=== PATIENT | male | born 1990 | race Caucasian/White ===

== ENCOUNTER 2018-06-03 09:34 | Emergency (ER) | payer SELFPAY ==
[2018-06-03 09:43] VITALS: BP 131/77
--- NOTE | 2018-06-03 10:02 | ER Document Report ---
ED Medical Screen (RME) - General Chief Complaint: Hand Pain Stated Complaint: POSSIBLE SPIDER BITE Time Seen by Provider: 06/03/18 09:48 Mode of Arrival: Ambulatory Information source: Patient Notes: Patient presents to the emergency department with multiple complaints right wrist pain and swelling right hand locking up on him possible infected spider bite complains of passing out 2 nights ago ear pain. Reports skin sensitivity chills. Patient has history of [place] spotted fever. Reports fever a few days ago. Patient also has history of IV drug use. Patient reports he is attempted IV access in his wrist and on his left forearm. Dr. Hall consulted and assessed patient. Advises for workup. I have greeted and performed a rapid initial assessment of this patient. A comprehensive ED assessment and evaluation of the patient, analysis of test results and completion of the medical decision making process will be conducted by additional ED providers. TRAVEL OUTSIDE OF THE [place] IN LAST 30 DAYS: No - Related Data Allergies/Adverse Reactions: No Known Allergies Allergy (Verified 06/03/18 09:37) Past Medical History - Social History Chew tobacco use (# tins/day): No Frequency of alcohol use: Occasional Drug Abuse: None Pulmonary Medical History: Reports: Hx Bronchitis, Hx Pneumonia Renal/ Medical History: Denies: Hx Peritoneal Dialysis Psychiatric Medical History: Reports: Hx Attention Deficit Hyperactivity Disorder - Immunizations Hx Diphtheria, Pertussis, Tetanus Vaccination: Yes Physical Exam - Vital signs Vitals: Temp Pulse Resp BP Pulse Ox 98.3 F 84 14 131/77 H 99 06/03/18 09:39 06/03/18 09:39 06/03/18 09:39 06/03/18 09:39 06/03/18 09:39 Course - Vital Signs Vital signs: Temp Pulse Resp BP Pulse Ox 98.3 F 84 14 131/77 H 99 06/03/18 09:39 06/03/18 09:39 06/03/18 09:39 06/03/18 09:39 06/03/18 09:39
[2018-06-03] MEDS ORDERED: VANCOMYCIN HCL INJ 1000 MG VIAL IV ONE (10:04)
[2018-06-03] MEDS ORDERED: DIPH/PERTUSS(ACELL)/TETANUS VAC/PF 0.5 ML SYR (>=10YO) IM ONE (10:20)
--- NOTE | 2018-06-03 10:22 | ER Document Report ---
ED General - General Chief Complaint: Hand Pain Stated Complaint: POSSIBLE SPIDER BITE Time Seen by Provider: 06/03/18 09:48 Mode of Arrival: Ambulatory Notes: Joshua Andres is a 27-year-old male history of substance abuse. IV drug abuse. Multiple track diamond on his arms complaining of redness and swelling of the left upper extremity and right upper extremity. Has attempted to inject himself in the wrist area of both upper extremities. Denies any major other symptoms at this time other than the fact that his left ear is a little bit numb from passing out sleeping on it. TRAVEL OUTSIDE OF THE [place] IN LAST 30 DAYS: No - HPI Onset: Yesterday Onset/Duration: Gradual, Worse Severity: Mild - Related Data Allergies/Adverse Reactions: No Known Allergies Allergy (Verified 06/03/18 09:37) Past Medical History - General Information source: Patient - Social History Smoking Status: Current Every Day Smoker Chew tobacco use (# tins/day): No Frequency of alcohol use: Occasional Drug Abuse: Heroin, Marijuana, Methamphetamine Lives with: Alone Family History: Reviewed & Not Pertinent Patient has suicidal ideation: No Patient has homicidal ideation: No Pulmonary Medical History: Reports: Hx Bronchitis, Hx Pneumonia Renal/ Medical History: Denies: Hx Peritoneal Dialysis Psychiatric Medical History: Reports: Hx Attention Deficit Hyperactivity Disorder - Immunizations Hx Diphtheria, Pertussis, Tetanus Vaccination: Yes Review of Systems - Review of Systems Constitutional: denies: Fever, Malaise, Weakness EENT: No symptoms reported, See HPI, Other - Left ear numbness. denies: Ear discharge, Throat swelling Cardiovascular: denies: Chest pain, Palpitations, Heart racing Respiratory: No symptoms reported Gastrointestinal: denies: Abdominal pain, Diarrhea, Nausea, Vomiting Genitourinary: No symptoms reported Male Genitourinary: No symptoms reported Musculoskeletal: No symptoms reported Skin: See HPI, Lesions, Rash Hematologic/Lymphatic: No symptoms reported Neurological/Psychological: No symptoms reported Physical Exam - Vital signs Vitals: Temp Pulse Resp BP Pulse Ox 98.3 F 84 14 131/77 H 99 06/03/18 09:39 06/03/18 09:39 06/03/18 09:39 06/03/18 09:39 06/03/18 09:39 Interpretation: Normal - General General appearance: Appears well, Alert - HEENT Head: Normocephalic, Atraumatic Eyes: Normal Pupils: PERRL - Respiratory Respiratory status: No respiratory distress Chest status: Nontender Breath sounds: Normal Chest palpation: Normal - Cardiovascular Rhythm: Regular Heart sounds: Normal auscultation Murmur: No - Abdominal Inspection: Normal Distension: No distension Bowel sounds: Normal Tenderness: Nontender Organomegaly: No organomegaly - Back Back: Normal, Nontender - Extremities General upper extremity: Normal inspection, Tender, Normal color, Normal ROM, Normal temperature, Other - Tenderness to palpation of the right upper extremity around the distal radius area. There is some tenderness to palpation midforearm on the left with some mild redness of the left upper extremity General lower extremity: Normal inspection, Nontender, Normal color, Normal ROM , Normal temperature, Normal weight bearing. No: Peyman's sign - Neurological Neuro grossly intact: Yes Cognition: Normal Orientation: AAOx4 [place] Coma Scale Eye Opening: Spontaneous Huang Coma Scale Verbal: Oriented Huang Coma Scale Motor: Obeys Commands [place] Coma Scale Total: 15 Speech: Normal Motor strength normal: LUE, RUE, LLE, RLE Sensory: Normal - Psychological Associated symptoms: Normal affect, Normal mood - Skin Skin Temperature: Warm Skin Moisture: Dry Skin Color: Other - There are multiple track diamond present in the right upper and left upper extremities. Some surrounding erythema around the veins of the right upper and and left upper extremity Course - Re-evaluation Re-evalutation: 06/03/18 10:22 Based on patient's tenderness and redness on his bilateral upper extremities with history of IV drug abuse will get blood work empirically start him on a dose of vancomycin. Will likely discharge him with some oral antibiotics. 06/03/18 12:38 Laboratory 06/03/18 06/03/18 06/03/18 10:18 10:18 10:18 WBC 7.5 RBC 4.33 L Hgb 12.7 L Hct 36.2 L MCV 84 MCH 29.3 MCHC 35.1 RDW 12.8 Plt Count 223 Seg Neutrophils % 60.5 Lymphocytes % 26.1 Monocytes % 10.9 Eosinophils % 1.9 Basophils % 0.6 Absolute Neutrophils 4.5 Absolute Lymphocytes 2.0 Absolute Monocytes 0.8 Absolute Eosinophils 0.1 Absolute Basophils 0.0 Sodium 141.5 Potassium 4.0 Chloride 102 Carbon Dioxide 28 Anion Gap 12 BUN 9 Creatinine 0.66 Est GFR ( Amer) > 60 Est GFR (Non-Af Amer) > 60 Glucose 96 Calcium 9.3 Total Bilirubin 0.7 Direct Bilirubin 0.3 Neonat Total Bilirubin Not Reportable Neonat Direct Bilirubin Not Reportable Neonat Indirect Bili Not Reportable AST 21 ALT 21 Alkaline Phosphatase 54 C-Reactive Protein 81.4 H Total Protein 7.1 Albumin 4.0 HIV 1&2 Antibody NEGATIVE Patient has received IV antibiotics. Resting comfortably. Does not have an extremely elevated WBC count. At this time we will discharge him on oral antibiotics after his initial IV vancomycin. Blood cultures have been obtained. Will discharge in stable condition at this time - Vital Signs Vital signs: Temp Pulse Resp BP Pulse Ox 98.3 F 84 14 131/77 H 99 06/03/18 09:39 06/03/18 09:39 06/03/18 09:39 06/03/18 09:39 06/03/18 09:39 - Laboratory Result Diagrams: 06/03/18 10:18 06/03/18 10:18 Laboratory results interpreted by me: 06/03/18 06/03/18 10:18 10:18 RBC 4.33 L Hgb 12.7 L Hct 36.2 L C-Reactive Protein 81.4 H Discharge - Discharge Clinical Impression: Right arm cellulitis Condition: Good Disposition: HOME, SELF-CARE Instructions: Cellulitis (OM) Additional Instructions: Please return in 24 hours for recheck of the skin. Prescriptions: Amoxicillin 500 mg PO TID 10 Days #30 capsule Sulfamethoxazole/Trimethoprim [Bactrim Ds Tablet] 1 each PO BID 10 Days #20 tablet Forms: Return to Work
[2018-06-03 11:16] LABS: ABSOLUTE EOSINOPHILS # (AUTO) 0.1 10^3/uL (0.0-0.6); ABSOLUTE MONOCYTES (AUTO) 0.8 10^3/uL (0.1-1.4); ABSOLUTE NEUT (AUTO) 4.5 10^3/uL (1.7-8.2); BASOPHILS % (AUTO) 0.6 % (0-2); EOSINOPHILS % (AUTO) 1.9 % (0-6); HEMATOCRIT 36.2 % (37.9-51.0); HEMOGLOBIN 12.7 g/dL (13.5-17.0); LYMPHOCYTES % (AUTO) 26.1 % (13-45); MEAN CORPUSCULAR HEMOGLOBIN 29.3 pg (27.0-33.4); MEAN CORPUSCULAR HGB CONC 35.1 g/dL (32.0-36.0); MEAN CORPUSCULAR VOLUME 84 fl (80-97); MONOCYTES % (AUTO) 10.9 % (3-13); PLATELET COUNT 223 10^3/uL (150-450); RED BLOOD COUNT 4.33 10^6/uL (4.35-5.55); RED CELL DISTRIBUTION WIDTH 12.8 % (11.5-14.0); SEGMENTED NEUTROPHILS % (AUTO) 60.5 % (42-78); TOTAL CELLS COUNTED % (AUTO) 100 %; WHITE BLOOD COUNT 7.5 10^3/uL (4.0-10.5)
[2018-06-03 11:31] LABS: ALANINE AMINOTRANSFERASE 21 U/L (21-72); ALKALINE PHOSPHATASE 54 U/L (38-126); ANION GAP 12 (5-19); ASPARTATE AMINO TRANSFERASE 21 U/L (17-59); BILIRUBIN,DIRECT 0.3 mg/dL (0.0-0.4); BILIRUBIN,TOTAL 0.7 mg/dL (0.2-1.3); BLOOD UREA NITROGEN 9 mg/dL (7-20); C-REACTIVE PROTEIN 81.4 mg/L (<10.0); CALCIUM 9.3 mg/dL (8.4-10.2); CARBON DIOXIDE 28 mmol/L (22-30); CHLORIDE 102 mmol/L (98-107); GLUCOSE 96 mg/dL (75-110); SODIUM 141.5 mmol/L (137-145); TOTAL PROTEIN 7.1 g/dL (6.3-8.2)
[2018-06-04 05:40] LABS: HEPATITIS A AB IGM Negative (Negative); HEPATITIS B CORE AB IGM Negative (Negative); HEPATITS B SURFACE ANTIGEN Negative (Negative)
[2018-06-05 06:14] LABS: HEPATITIS C VIRUS ANTIBODY <0.1 s/co ratio (0.0-0.9)
== END 2018-06-03 13:27 | disposition home or self-care (01) ==
LOC: ER 09:34
DX: L03.113 Cellulitis of right upper limb (principal); M79.642 Pain in left hand; F17.200 Nicotine dependence, unspecified, uncomplicated; Z23 Encounter for immunization
CPT/HCPCS: 99283; 90471; 36415; 87040; 85025; 86140; 80053; 86701; 80074; 90715; J3370

== ENCOUNTER 2020-05-01 12:59 | Emergency (ER) | payer SELFPAY ==
[2020-05-01 13:09] VITALS: BP 149/85
[2020-05-01] MEDS ORDERED: DEXAMETHASONE SOD PHOS INJ 10 MG/1 ML VIAL IM ONE (13:37)
--- NOTE | 2020-05-01 13:42 | ER Document Report ---
HPI - HPI Time Seen by Provider: 05/01/20 13:34 Pain Level: 2 Notes: CHIEF COMPLAINT:poison oscar HPI: 29-year-old male presenting to the emergency department complaining of 3 days of progressively worsening poison oscar rash. States it started on the wrists now has it over the entire torso and now the face around the left eye. Has been using calamine lotion. ROS: See HPI - all other systems were reviewed and are otherwise negative Constitutional: no fever Eyes: no drainage ENT: no runny nose, no sore throat Integumentary: + rash Allergy: no hives Musculoskeletal: + extremity pain or swelling Neurological: no numbness/tingling MEDICATIONS: I agree with the patient medications as charted by the RN. ALLERGIES: I agree with the allergies as charted by the RN. PAST MEDICAL HISTORY/PAST SURGICAL HISTORY: Reviewed and agree as charted by RN. SOCIAL HISTORY: Reviewed and agree as charted by RN. FAMILY HISTORY: No significant familial comorbid conditions directly related to patient complaint EXAM: Reviewed vital signs as charted by RN. CONSTITUTIONAL: Alert and oriented and responds appropriately to questions. Well-appearing; well-nourished HEAD: Normocephalic; atraumatic EYES: PERRL; Conjunctivae clear, sclerae non-icteric ENT: normal nose; no rhinorrhea; moist mucous membranes; pharynx without lesions noted NECK: Supple without meningismus CARD: symmetric distal pulses RESP: Normal chest excursion without splinting or tachypnea ABD/GI: non-distended BACK: The back appears normal EXT: Normal ROM in all joints; no cyanosis, no effusions, no edema SKIN: Normal color for age and race; warm; dry; good turgor; patient with raised erythematous lesions with crusting noted on the bilateral upper and lower extremities as well as torso and around the left eye with slight soft tissue swelling. Also on the left neck NEURO: Moves all extremities equally; Motor and sensory function intact PSYCH: The patient's mood and manner are appropriate. Grooming and personal hygiene are appropriate. MDM: 29-year-old male with Rhus dermatitis. 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 IN LAST 30 DAYS: No Course - Vital Signs Vital signs: Temp Pulse Resp BP Pulse Ox 97.7 F 97 16 149/85 H 98 05/01/20 13:04 05/01/20 13:04 05/01/20 13:04 05/01/20 13:04 05/01/20 13:04 Discharge - Discharge Clinical Impression: Rhus dermatitis Condition: Stable Disposition: HOME, SELF-CARE Instructions: Catrachito Delgadillo ([facility]) Additional Instructions: 1. 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 use the Prednisone as prescribed 3. take the Atarax for itching as prescribed Prescriptions: Prednisone [Deltasone 20 mg Tablet] 2 tab PO DAILY 7 Days #14 tablet Hydroxyzine Pamoate [Vistaril 25 mg Capsule] 25 mg PO Q6H PRN #30 capsule PRN Reason:
== END 2020-05-01 13:46 | disposition home or self-care (01) ==
LOC: ER 12:59
DX: L23.7 Allergic contact dermatitis due to plants, except food (principal); F17.200 Nicotine dependence, unspecified, uncomplicated
CPT/HCPCS: 99282; 96372; J1100

== ENCOUNTER 2020-05-10 08:21 | Emergency (ER) | payer SELFPAY ==
[2020-05-10 08:27] VITALS: BP 141/92
[2020-05-10] MEDS ORDERED: LIDOCAINE 1%/EPINEPHRINE INJ 20 ML VIAL INJ ONE (08:58)
--- NOTE | 2020-05-10 09:02 | ER Document Report ---
ED General - General Chief Complaint: Skin Problem Stated Complaint: ABSCESS/RIGHT LEG Time Seen by Provider: 05/10/20 08:58 Notes: CHIEF COMPLAINT: Tender swollen area on right lower leg for 3 days HPI: 29-year-old male presenting to the emergency department complaining of a tender area on the medial right lower leg over the last 3 days. Patient was recently on steroids for bad poison oak and has been scratching at the different areas. States he did have an abscess on the right knee 2 weeks ago that he drained on his own. He states his tetanus is up-to-date. Denies fever. ROS: See HPI - all other systems were reviewed and are otherwise negative Constitutional: no fever Integumentary: + rash Allergy: no hives Musculoskeletal: + extremity pain or swelling Neurological: no numbness/tingling, no weakness MEDICATIONS: I agree with the patient medications as charted by the RN. ALLERGIES: I agree with the allergies as charted by the RN. PAST MEDICAL HISTORY/PAST SURGICAL HISTORY: Reviewed and agree as charted by RN. SOCIAL HISTORY: Reviewed and agree as charted by RN. FAMILY HISTORY: No significant familial comorbid conditions directly related to patient complaint EXAM: Reviewed vital signs as charted by RN. CONSTITUTIONAL: Alert and oriented and responds appropriately to questions. Well-appearing; well-nourished HEAD: Normocephalic; atraumatic EYES: Conjunctivae clear, sclerae non-icteric ENT: normal nose; no rhinorrhea; moist mucous membranes NECK: Supple without meningismus CARD: symmetric distal pulses RESP: Normal chest excursion without splinting or tachypnea ABD/GI: non-distended BACK: The back appears normal non-tender to palpation; no cyanosis, no effusions, no edema SKIN: Normal color for age and race; warm; dry; good turgor; excoriated rash generally over the lower extremities. There is a tender indurated region on the medial aspect of the right lower extremity proximal to the medial malleolus measuring approximately 2 cm in diameter that is mildly tender mildly fluctuant NEURO: Moves all extremities equally; Motor and sensory function intact PSYCH: The patient's mood and manner are appropriate. Grooming and personal hygiene are appropriate. MDM: 29-year-old male with a small abscess on the medial right lower leg. This area will require incision and drainage. TRAVEL OUTSIDE OF THE [place] IN LAST 30 DAYS: No - Related Data Allergies/Adverse Reactions: prednisone Adverse Reaction (Verified 05/10/20 08:54) itching, rash to palms Past Medical History - Social History Smoking Status: Current Every Day Smoker Chew tobacco use (# tins/day): No Frequency of alcohol use: None Drug Abuse: None Family History: Reviewed & Not Pertinent Pulmonary Medical History: Reports: Hx Bronchitis, Hx Pneumonia Renal/ Medical History: Denies: Hx Peritoneal Dialysis Psychiatric Medical History: Reports: Hx Attention Deficit Hyperactivity Disorder - Immunizations Hx Diphtheria, Pertussis, Tetanus Vaccination: Yes Physical Exam - Vital signs Vitals: Temp Pulse Resp BP Pulse Ox 98.4 F 107 H 20 141/92 H 98 05/10/20 08:26 05/10/20 08:26 05/10/20 08:26 05/10/20 08:26 05/10/20 08:26 Course - Vital Signs Vital signs: Temp Pulse Resp BP Pulse Ox 98.4 F 107 H 20 141/92 H 98 05/10/20 08:26 05/10/20 08:26 05/10/20 08:26 05/10/20 08:26 05/10/20 08:26 Procedures - Incision and Drainage Right Lower Leg Time completed: 10:04 Type: Simple, Single Anesthetic type: 1% Lidocaine w/epi mL's of anesthetic: 1 Blade size: 11 I&D procedure: Chlorprep applied, Iodoform packing placed, Sterile dressing applied Incision Method: Incision made by scalpel Amount/type of drainage: 1 ml purulent Discharge - Discharge Clinical Impression: Abscess of leg, right Condition: Stable Disposition: HOME, SELF-CARE Additional Instructions: 1. packing out in 2-3 days 2. follow up with your primary care provider for further evaluation in 2-3 days 3. medicines as prescribed, take Tylenol or Voltaren for pain 4. return sooner for any worsening condition, increasing redness or onset of fever 5. apply warm compresses to the wound area 2-3 times daily Prescriptions: Sulfamethoxazole/Trimethoprim [Bactrim Ds Tablet] 2 tab PO BID #28 tablet Diclofenac Sodium [Voltaren 50 Mg Tablet.Dr] 50 mg PO BID #20 tablet. Referrals: EVANS STARK MD [[facility]UNITY [facility]ED STAFF] - Follow up as needed
== END 2020-05-10 10:34 | disposition home or self-care (01) ==
LOC: ER 08:21
PROC: 0H9KXZZ Drainage of Right Lower Leg Skin, External Approach (ICD-10-PCS; principal; 2020-05-10)
DX: L02.415 Cutaneous abscess of right lower limb (principal); R21 Rash and other nonspecific skin eruption; F17.200 Nicotine dependence, unspecified, uncomplicated; Z88.8 Allergy status to other drugs, medicaments and biological substances
CPT/HCPCS: 99283; 10060; J3490

== ENCOUNTER 2020-05-13 21:41 | Inpatient (IN) | payer SELFPAY ==
--- NOTE | 2020-05-13 23:36 | ER Document Report ---
ED Medical Screen (RME) - General Stated Complaint: INJURY TO RIGHT LEG/POSSIBLE INFECTION/NAUSEA Time Seen by Provider: 05/13/20 23:33 Mode of Arrival: Ambulatory Information source: Patient Notes: 29-year-old male patient presents emergency department concern for abscess to his right lower extremity. Patient reports this is been present for the last 4 to 5 days. He states he was seen here and had this drained. He reports he is now having worsening symptoms, he states the pain is so severe he is barely able to walk on it. He states he is having some confusion and chills. He denies any medical history and denies any IV drug use. Large area of erythema noted to right lower extremity. There is induration and a few small areas of fluctuance, there is an open area in which a recent I&D was done. I have greeted and performed a rapid initial assessment of this patient. A comprehensive ED assessment and evaluation of the patient, analysis of test results and completion of the medical decision making process will be conducted by additional ED providers. I have specifically instructed the patient or family members with the patient to immediately return to any nursing staff should anything change in the patient's condition or with their chief complaint. TRAVEL OUTSIDE OF THE [place] IN LAST 30 DAYS: No - Related Data Allergies/Adverse Reactions: prednisone Adverse Reaction (Verified 05/10/20 08:54) itching, rash to palms Past Medical History Pulmonary Medical History: Reports: Hx Bronchitis, Hx Pneumonia Renal/ Medical History: Denies: Hx Peritoneal Dialysis Psychiatric Medical History: Reports: Hx Attention Deficit Hyperactivity Disorder - Immunizations Hx Diphtheria, Pertussis, Tetanus Vaccination: Yes Physical Exam - Vital signs Vitals: Temp Pulse Resp BP Pulse Ox 98.7 F 98 16 128/79 H 100 05/13/20 21:54 05/13/20 21:54 05/13/20 21:54 05/13/20 21:54 05/13/20 21:54 Course - Vital Signs Vital signs: Temp Pulse Resp BP Pulse Ox 98.7 F 98 16 128/79 H 100 05/13/20 21:54 05/13/20 21:54 05/13/20 21:54 05/13/20 21:54 05/13/20 21:54
[2020-05-14 00:13] LABS: ABSOLUTE BASOPHILS # (AUTO) 0.1 10^3/uL (0.0-0.2); ABSOLUTE EOSINOPHILS # (AUTO) 0.5 10^3/uL (0.0-0.6); ABSOLUTE MONOCYTES (AUTO) 0.6 10^3/uL (0.1-1.4); BASOPHILS % (AUTO) 0.6 % (0-2); EOSINOPHILS % (AUTO) 5.7 % (0-6); HEMATOCRIT 39.6 % (37.9-51.0); HEMOGLOBIN 14.3 g/dL (13.5-17.0); LYMPHOCYTES % (AUTO) 21.6 % (13-45); MEAN CORPUSCULAR VOLUME 83 fl (80-97); MONOCYTES % (AUTO) 6.8 % (3-13); PLATELET COUNT 274 10^3/uL (150-450); RED BLOOD COUNT 4.76 10^6/uL (4.35-5.55); RED CELL DISTRIBUTION WIDTH 13.8 % (11.5-14.0); SEGMENTED NEUTROPHILS % (AUTO) 65.3 % (42-78); TOTAL CELLS COUNTED % (AUTO) 100 %; WHITE BLOOD COUNT 9.1 10^3/uL (4.0-10.5)
[2020-05-14 00:29] LABS: ALBUMIN 4.5 g/dL (3.5-5.0); ALKALINE PHOSPHATASE 44 U/L (38-126); ANION GAP 9 (5-19); ASPARTATE AMINO TRANSFERASE 133 U/L (17-59); BILIRUBIN,DIRECT 0.1 mg/dL (0.0-0.4); BILIRUBIN,TOTAL 0.8 mg/dL (0.2-1.3); BLOOD UREA NITROGEN 13 mg/dL (7-20); C-REACTIVE PROTEIN 37.7 mg/L (<10.0); CALCIUM 9.7 mg/dL (8.4-10.2); CARBON DIOXIDE 27 mmol/L (22-30); CHLORIDE 103 mmol/L (98-107); GLUCOSE 86 mg/dL (75-110); POTASSIUM 3.7 mmol/L (3.6-5.0); TOTAL PROTEIN 7.5 g/dL (6.3-8.2)
--- NOTE | 2020-05-14 00:38 | RADIOLOGY REPORT (SQ) ---
EXAM: XR Right Tibia and Fibula, 2 Views EXAM DATE/TIME: 05/13/2020 12:10 AM CLINICAL HISTORY: The patient is 29 years old and is Male; eval for osteo TECHNIQUE: Frontal and lateral views of the right tibia and fibula. COMPARISON: No relevant prior studies available. FINDINGS: BONES/JOINTS: No acute fracture or dislocation. No osseous erosion or periosteal reaction identified. SOFT TISSUES: There is mild soft tissue swelling about the lower leg. No radiopaque foreign body identified. Possible tiny focus of air within the medial soft tissues about the mid aspect of the lower leg. IMPRESSION: Soft tissue swelling with questionable tiny focus of soft tissue air medially. No acute osseous findings appreciated.
[2020-05-14 00:46] LABS: ERYTHROCYTE SEDIMENTATION RATE 18 mm/hr (0-15)
[2020-05-14] MEDS ORDERED: LIDOCAINE 1%/EPINEPHRINE INJ 20 ML VIAL INJ ONE (01:09)
--- NOTE | 2020-05-14 01:12 | ER Document Report ---
ED Skin Rash/Insect Bite/Abscs - General Chief Complaint: Abscess Stated Complaint: INJURY TO RIGHT LEG/POSSIBLE INFECTION/NAUSEA Time Seen by Provider: 05/13/20 23:33 Mode of Arrival: Ambulatory Notes: Patient is a 29-year-old male with no past medical history who presents the emergency department with a chief complaint of a possible abscess to his right medial lower leg. Patient was seen here in the emergency department 3 days ago and had an abscess drained. Patient states that the redness got progressively worse and spread. Patient was exposed to poison oscar earlier in the month. Denies any fever. Admits to body aches and being mildly confused. Patient denies any drug use. Patient is up-to-date on his tetanus vaccine. Patient later revealed that he does have a history of heroin use. States that he has not been on heroin because his twin brother from a heroin overdose. TRAVEL OUTSIDE OF THE [place] IN LAST 30 DAYS: No - Related Data Allergies/Adverse Reactions: prednisone Adverse Reaction (Verified 05/10/20 08:54) itching, rash to palms Past Medical History - General Information source: Patient - Social History Smoking Status: Current Every Day Smoker Chew tobacco use (# tins/day): No Frequency of alcohol use: Rare Drug Abuse: None Family History: Reviewed & Not Pertinent Pulmonary Medical History: Reports: Hx Bronchitis, Hx Pneumonia Renal/ Medical History: Denies: Hx Peritoneal Dialysis Psychiatric Medical History: Reports: Hx Attention Deficit Hyperactivity Disorder - Immunizations Hx Diphtheria, Pertussis, Tetanus Vaccination: Yes Review of Systems - Review of Systems Notes: REVIEW OF SYSTEMS: CONSTITUTIONAL : Denies recent illness. Denies recent unintentional weight loss. Denies fever, chills, or sweats. EENT: Denies eye, ear, throat, or mouth pain, discharge, or symptoms. Denies nasal or sinus congestion. CARDIOVASCULAR: Denies chest pain. RESPIRATORY: Denies shortness of breath, cough, congestion, difficulty breathing, or wheezing. GASTROINTESTINAL: Denies nausea, vomiting, and diarrhea. Denies abdominal pain. Denies constipation. GENITOURINARY: Denies difficulty urinating, burning, blood in urine, urgency or frequency. MUSCULOSKELETAL: Denies neck and back pain. Denies joint pain or swelling. SKIN: See HPI. HEMATOLOGIC : Denies easy bruising or bleeding. LYMPHATIC: Denies swollen, painful, enlarged glands. NEUROLOGICAL: Denies no numbness or tingling denies weakness. Denies headache. Denies altered mental status. Denies alteration in speech. PSYCHIATRIC: Denies stress, anxiety, alteration in sleep patterns, or depression. All other systems reviewed and negative. Physical Exam - Vital signs Vitals: Temp Pulse Resp BP Pulse Ox 98.7 F 98 16 128/79 H 100 05/13/20 21:54 05/13/20 21:54 05/13/20 21:54 05/13/20 21:54 05/13/20 21:54 - Notes Notes: PHYSICAL EXAMINATION: GENERAL: Appears well, healthy, well-nourished, no acute distress. HEAD: Normocephalic, atraumatic. EYES: PERRL, conjunctiva normal, all extraocular movements intact, sclera nonicteric ENT: Moist mucous membranes. NECK: Supple, no noticeable swelling, redness, rash. Normal range of motion. LUNGS: Equal breath sounds bilaterally and clear to auscultation. No wheezes rales or rhonchi. CARDIOVASCULAR: S1-S2, regular rate, regular rhythm. Radial pulses 2+, normal. ABDOMEN: Normoactive bowel sounds. Soft, nontender, no guarding, no rebound t enderness, and no masses palpated. EXTREMITIES: Normal strength and range of motion, no pitting or edema. No cyanosis. NEUROLOGICAL: Moves all extremities upon command. Strength 5/5 in all extrem ities. PSYCH: Normal mood, normal affect. SKIN: Warm, dry. Abscess noted to right lower extremity with surrounding cellulitis. Open abscess noted with purulent drainage. Normal skin turgor. Course - Re-evaluation Re-evalutation: 05/14/20 03:10 Differential diagnosis includes but normal limited to: abscess, dermoid cyst, sebaceous cyst, furnucle, or others. Based on patient's physical exam and history, this is an abscess. It was drained in the ER. There is surrounding cellulitis. Patient has risk factors for MRSA. Based on patient's physical exam and these factors, they will will be treated with clindamycin. Since the patient has failed outpatient treatment, will admit. Started the patient on clindamycin. Wound culture sent. 05/14/20 03:[address] Veloz, hospitalist. Patient will be admitted to the medical floor. - Vital Signs Vital signs: Temp Pulse Resp BP Pulse Ox 98 F 94 16 130/71 H 100 05/14/20 02:47 05/14/20 02:47 05/14/20 02:47 05/14/20 02:47 05/14/20 02:47 - Laboratory Result Diagrams: 05/13/20 23:55 05/13/20 23:55 Laboratory results interpreted by me: 05/13/20 05/13/20 23:55 23:55 ESR 18 H AST 133 H ALT 197 H C-Reactive Protein 37.7 H Discharge - Discharge Clinical Impression: Abscess of leg, right Cellulitis Qualifiers: Site of cellulitis: extremity Site of cellulitis of extremity: lower extremity Laterality: right Qualified Code(s): L03.115 - Cellulitis of right lower limb Condition: Stable Disposition: HOME, SELF-CARE Admitting Provider: Roselia (Hospitalist) Unit Admitted: Medical Floor
[2020-05-14] MEDS ORDERED: CLINDAMYCIN 300 MG/D5W RTU 300 MG/50 ML RTUPB IV ONE (01:25)
[2020-05-14 03:52] LABS: URINE BARBITURATES SCREEN NEGATIVE; URINE BENZODIAZEPINES SCREEN NEGATIVE; URINE COCAINE SCREEN NEGATIVE; URINE MARIJUANA (THC) SCREEN NEGATIVE; URINE METHADONE SCREEN NEGATIVE; URINE PHENCYCLIDINE SCREEN NEGATIVE
[2020-05-14] MEDS ORDERED: MAG HYDROX/AL HYDROX/SIMETH SUSP 30 ML UDCUP PO PRN (03:59)
[2020-05-14] MEDS ORDERED: ONDANSETRON HCL INJ/PF 4 MG/2 ML SDV IV PRN (03:59)
[2020-05-14] MEDS ORDERED: LEVALBUTEROL HCL NEB 0.63 MG/3 ML AMPUL NEB PRN (03:59)
[2020-05-14] MEDS ORDERED: MAGNESIUM HYDROXIDE SUSP 30 ML UDCUP PO PRN (03:59)
[2020-05-14] MEDS ORDERED: IBUPROFEN 800 MG TABLET PO PRN (04:03)
[2020-05-14] MEDS ORDERED: GUAIFENESIN SYRP 200 MG/10 ML UDC PO PRN (04:03)
[2020-05-14] MEDS ORDERED: ACETAMINOPHEN 325 MG TABLET PO PRN (04:03)
[2020-05-14] MEDS ORDERED: NICOTINE 21 MG/24 HR PATCH.TD24 TD PRN (04:03)
[2020-05-14] MEDS ORDERED: LORAZEPAM INJ 2 MG/1 ML VIAL IV PRN (04:03)
[2020-05-14] MEDS ORDERED: HYDRALAZINE HCL INJ/PF 20 MG/1 ML SDV IV PRN (04:03)
[2020-05-14] MEDS ORDERED: MORPHINE SULFATE 10 MG/ML INJ IV PRN ×3 (04:03)
[2020-05-14] MEDS ORDERED: CEFEPIME 2 GM/D5W RTU 2 GM/50 ML RTUPB IV SCH (04:15)
[2020-05-14] MEDS ORDERED: VANCOMYCIN HCL INJ 1000 MG VIAL IV SCH (04:15)
[2020-05-14] MEDS ORDERED: VANCOMYCIN HCL 1,000 MG in DEXTROSE 5%-WATER 250 ML IV SCH (06:00)
--- NOTE | 2020-05-14 06:58 | PDOC H&P ---
History of Present Illness Admission Date/PCP: 05/14/2020 03:37 No local PCP Patient complains of: Right leg pain History of Present Illness: JUAN MESA is a 29 year old male who represented to the emergency room with a 5-day history of right leg pain. He admits that he was seen in the emergency room on 05/10/2020, with a 2-day history of a painful red and swollen medial right lower leg, and was diagnosed with a abscess and cellulitis of his right lower extremity. He admits at that time the abscess was incised and drained and he was started on oral antibiotics utilizing Bactrim DS. He states he took his antibiotic therapy as directed, however his leg has been increasingly more jazmine nful and has become more swollen, red and warm to touch. He further admits accompanying body aches and associated intermittent confusion over the last 3 days. His leg pain is made significantly worse by weightbearing. He admits prior similar episodes. He denies identification of any additional aggravating or ameliorating factors for his right leg pain. In the emergency room he was noted to have a new small area of abscess involving the same area on the medial aspect of the right lower extremity which was incised and drained. Due to his lack of response to outpatient therapy he was subsequently admitted to the hospital for further evaluation and treatment. Past Medical History Cardiac Medical History: Denies: Coronary Artery Disease, DVT, Hypertension Pulmonary Medical History: Reports: Bronchitis, Pneumonia Denies: Asthma, Chronic Obstructive Pulmonary Disease (COPD) EENT Medical History: Denies: Cataracts, Ears - Hearing aids Neurological Medical History: Denies: Multiple Sclerosis, Seizures Endocrine Medical History: Denies: Diabetes Mellitus Type 1, Hyperthyroidism, Hypothyroidism, Obesity Renal/ Medical History: Denies: Chronic Kidney Disease, Nephrolithiasis Malignancy Medical History: Reports: None GI Medical History: Denies: Cirrhosis, Hepatitis, Peptic Ulcer Disease Musculoskeltal Medical History: Denies: Arthritis, Gout Skin Medical History: Denies: Eczema, Psoriasis Psychiatric Medical History: Reports: Attention Deficit Hyperactivity Disorder, Substance Abuse, Tobacco Dependency Denies: Alcohol Dependency Traumatic Medical History: Reports: None Hematology: Denies: Anemia, Bleeding Tendencies Infectious Medical History: Reports: None Past Surgical History Past Surgical History: Reports: None Social History Information Source: Patient Lives with: Parents Smoking Status: Current Every Day Smoker Electronic Cigarette use?: No Frequency of Alcohol Use: None Hx Recreational Drug Use: Yes - Denies current use: Quit after his twin brother of a heroin overdose. Drugs: Heroin Hx Prescription Drug Abuse: No - Advance Directive Resuscitation Status: Full Code Surrogate healthcare decision maker:: Zully Romero Family History Family History: denies: CAD, DM, Hypertension, Malignancy Parental Family History Reviewed: Yes Children Family History Reviewed: No Sibling(s) Family History Reviewed.: Yes Medication/Allergy Home Medications: Azithromycin [Zithromax 250 mg Tablet] 250 mg PO ASDIR PRN #6 tablet 01/16/15 Benzonatate [Tessalon Perles 100 mg Capsule] 100 mg PO Q8HP PRN #20 capsule 01/16/15 Cetirizine HCl/Pseudoephedrine [Zyrtec-D 12 Hour Tablet] 1 tab.sr PO Q12 #14 tab.sr 01/16/15 Carisoprodol [Soma 350 Mg Tablet] 350 mg PO DAILY #14 tablet 09/06/15 Amoxicillin 500 mg PO TID 10 Days #30 capsule 06/03/18 Sulfamethoxazole/Trimethoprim [Bactrim Ds Tablet] 1 each PO BID 10 Days #20 tablet 06/03/18 Hydroxyzine Pamoate [Vistaril 25 mg Capsule] 25 mg PO Q6H PRN #30 capsule 05/01/20 Prednisone [Deltasone 20 mg Tablet] 2 tab PO DAILY 7 Days #14 tablet 05/01/20 Diclofenac Sodium [Voltaren 50 Mg Tablet.Dr] 50 mg PO BID #20 tablet.dr 05/10/20 Sulfamethoxazole/Trimethoprim [Bactrim Ds Tablet] 2 tab PO BID #28 tablet 05/10/20 Allergies/Adverse Reactions: prednisone Adverse Reaction (Verified 05/10/20 08:54) itching, rash to palms Review of Systems Constitutional: PRESENT: other - Body aches. ABSENT: chills, fever(s) Eyes: ABSENT: visual disturbances, other - Eye pain Ears: ABSENT: hearing changes, other - Ear pain Nose, Mouth, and Throat: ABSENT: headache(s), sore throat Cardiovascular: ABSENT: chest pain, palpitations Respiratory: ABSENT: cough, dyspnea Gastrointestinal: ABSENT: abdominal pain, constipation, diarrhea, nausea, vomiting Musculoskeletal: ABSENT: deformity, joint swelling Integumentary: PRESENT: as per HPI, rash - Recent poison oscar which caused excessive itching, wounds - Erythema edema and tenderness of the right medial lower extremity with abscesses. ABSENT: pruritus Neurological: PRESENT: as per HPI, confusion, focal weakness. ABSENT: convulsions, memory loss, syncope Psychiatric: ABSENT: anxiety, depression Endocrine: ABSENT: cold intolerance, heat intolerance Hematologic/Lymphatic: ABSENT: easy bleeding, easy bruising Allergic/Immunologic: ABSENT: seasonal rhinorrhea Physical Exam Vital Signs: Temp Pulse Resp BP Pulse Ox 98 F 94 16 130/71 H 100 05/14/20 02:47 05/14/20 02:47 05/14/20 02:47 05/14/20 02:47 05/14/20 02:47 Intake & Output 05/12/20 05/13/20 05/14/20 23:59 23:59 23:59 Intake Total 50 Balance 50 Weight 72.575 kg General appearance: PRESENT: no acute distress, cooperative, thin Head exam: PRESENT: atraumatic, normocephalic Eye exam: PRESENT: conjunctiva pink. ABSENT: conjunctival injection, scleral icterus Ear exam: PRESENT: normal external ear exam. ABSENT: bleeding, drainage Mouth exam: PRESENT: dry mucosa, neck supple Neck exam: ABSENT: thyromegaly, tracheal deviation Respiratory exam: PRESENT: clear to auscultation meagan, symmetrical, unlabored Cardiovascular exam: PRESENT: RRR. ABSENT: clicks, gallop, rubs Pulses: PRESENT: normal radial pulses, normal dorsalis pedis pul Vascular exam: PRESENT: normal capillary refill. ABSENT: pallor GI/Abdominal exam: PRESENT: normal bowel sounds, soft Rectal exam: PRESENT: deferred Extremities exam: PRESENT: tenderness - Erythema and edema with tenderness to palpation and warmth to touch noted on the medial aspect of the right lower extremity. Dressing is in place and not removed for my evaluation.. ABSENT: joint swelling, pedal edema Musculoskeletal exam: ABSENT: deformity, dislocation Neurological exam: PRESENT: alert, oriented to person, oriented to place, or iented to time, oriented to situation, CN II-XII grossly intact. ABSENT: motor sensory deficit Psychiatric exam: PRESENT: appropriate affect, normal mood Skin exam: PRESENT: dry, intact, warm. ABSENT: jaundice, rash, urticaria Results Laboratory Results: 05/13/20 23:55 05/13/20 23:55 05/13/20 05/13/20 05/13/20 23:55 23:55 23:55 WBC 9.1 RBC 4.76 Hgb 14.3 Hct 39.6 MCV 83 MCH 30.0 MCHC 36.0 RDW 13.8 Plt Count 274 Seg Neutrophils % 65.3 Sodium 139.0 Potassium 3.7 Chloride 103 Carbon Dioxide 27 Anion Gap 9 BUN 13 Creatinine 0.86 Est GFR ( Amer) > 60 Glucose 86 Lactic Acid 0.9 Calcium 9.7 Total Bilirubin 0.8 AST 133 H Alkaline Phosphatase 44 C-Reactive Protein 37.7 H Total Protein 7.5 Albumin 4.5 Impressions: Tibia/Fibula X-Ray 05/13/20 23:34 IMPRESSION: Soft tissue swelling with questionable tiny focus of soft tissue air medially. No acute osseous findings appreciated. Assessment and Plan - Diagnosis (1) Cellulitis and abscess of right lower extremity Is this a current diagnosis for this admission?: Yes (2) Pain of right lower leg Is this a current diagnosis for this admission?: Yes (3) Intermittent confusion Is this a current diagnosis for this admission?: Yes (4) Ague Is this a current diagnosis for this admission?: Yes (5) Tobacco use disorder, continuous Is this a current diagnosis for this admission?: Yes - Plan Summary Summary: Patient will be admitted to the medical floor, where he will receive routine supportive and symptomatic cares. He will be treated with IV antibiotics utili zing vancomycin and cefepime pending blood and wound cultures. He will receive morphine sulfate 2 to 4 mg IV every 2 hours as needed for pain. He will receive Ativan 1 mg IV every 4 hours as needed for anxiety or restlessness. He will be placed on a regular diet. CBCs, metabolic profiles, magnesium levels and additional laboratory and/or radiographic evaluations will be obtained as appropriate. Smoking cessation is advised and counseled briefly at the bedside. A nicotine replacement patch is available for the patient's use, if desired. - Time Time Spent with patient: 15-24 minutes Smoking Cessation Education: 3 to 10 minutes Medications reviewed and adjusted accordingly: Yes Anticipated discharge: Home - Inpatient Certification Based on my medical assessment, after consideration of the patient's comorbidities, presenting symptoms, or acuity I expect that the services needed warrant INPATIENT care.: Yes I certify that my determination is in accordance with my understanding of Medicare's requirements for reasonable and necessary INPATIENT services [42 CFR 412.3e].: Yes Medical Necessity: Need Close Monitoring Due to Risk of Patient Decompensation, Need for Pain Control, Need for IV Antibiotics
[2020-05-14] MEDS: HEPARIN SOD (PORCINE) 5,000 UNIT/ML 1 ML VIAL SUBCUT SCH ×3 (08:40→22:05)
[2020-05-14] MEDS: MORPHINE SULFATE 10 MG/ML INJ IV PRN ×4 (08:40→17:13)
--- NOTE | 2020-05-14 10:18 | PDOC PROGRESS REPORT ---
Subjective Progress Note for:: 05/24/20 Subjective:: 29 year old male who represented to the emergency room with a 5-day history of right leg pain. He admits that he was seen in the emergency room on 05/10/2020, with a 2-day history of a painful red and swollen medial right lower leg, and was diagnosed with a abscess and cellulitis of his right lower extremity. He admits at that time the abscess was incised and drained and he was started on oral antibiotics utilizing Bactrim DS. He states he took his antibiotic therapy as directed, however his leg has been increasingly more painful and has become more swollen, red and warm to touch. He further admits accompanying body aches and associated intermittent confusion over the last 3 days. His leg pain is made significantly worse by weightbearing. He admits prior similar episodes. He denies identification of any additional aggravating or ameliorating factors for his right leg pain. In the emergency room he was noted to have a new small area of abscess involving the same area on the medial aspect of the right lower extremity which was incised and drained. Due to his lack of response to outpatient therapy he was subsequently admitted to the hospital for further evaluation and treatment. [id number]-old male admitted with right lower leg abscess incision and drainage was done in the emergency room. Patient was started on IV cefepime and vancomycin. Blood cultures or wound cultures are pending. Complaining of of stinging pain in the right lower extremity. Reason For Visit: CELLULITIS WITH ABSCESS RIGHT LOWER LEG Physical Exam Vital Signs: Temp Pulse Resp BP Pulse Ox 98.1 F 87 18 123/66 96 05/14/20 08:05 05/14/20 08:05 05/14/20 08:05 05/14/20 08:05 05/14/20 08:05 Intake & Output 05/13/20 05/14/20 05/15/20 06:59 06:59 06:59 Intake Total 100 Balance 100 Weight 70.1 kg General appearance: PRESENT: no acute distress, well-developed Head exam: PRESENT: atraumatic Eye exam: PRESENT: PERRLA Mouth exam: PRESENT: moist, tongue midline Teeth exam: PRESENT: poor dentation Neck exam: ABSENT: carotid bruit, JVD, lymphadenopathy, thyromegaly Respiratory exam: PRESENT: decreased breath sounds Cardiovascular exam: PRESENT: RRR. ABSENT: diastolic murmur, rubs, systolic murmur GI/Abdominal exam: PRESENT: normal bowel sounds, soft. ABSENT: distended, guarding, mass, organolmegaly, rebound, tenderness Rectal exam: PRESENT: deferred Extremities exam: PRESENT: other - Right lower leg erythema present and wound is covered with Tu wrap. Neurological exam: PRESENT: alert, awake, oriented to person, oriented to place, oriented to time, oriented to situation, CN II-XII grossly intact. ABSENT: magan r sensory deficit Psychiatric exam: PRESENT: appropriate affect, normal mood. ABSENT: homicidal ideation, suicidal ideation Results Laboratory Results: 05/13/20 23:55 05/13/20 23:55 05/13/20 05/13/20 05/13/20 23:55 23:55 23:55 WBC 9.1 RBC 4.76 Hgb 14.3 Hct 39.6 MCV 83 MCH 30.0 MCHC 36.0 RDW 13.8 Plt Count 274 Seg Neutrophils % 65.3 Sodium 139.0 Potassium 3.7 Chloride 103 Carbon Dioxide 27 Anion Gap 9 BUN 13 Creatinine 0.86 Est GFR ( Amer) > 60 Glucose 86 Lactic Acid 0.9 Calcium 9.7 Total Bilirubin 0.8 AST 133 H Alkaline Phosphatase 44 C-Reactive Protein 37.7 H Total Protein 7.5 Albumin 4.5 Impressions: Tibia/Fibula X-Ray 05/13/20 23:34 IMPRESSION: Soft tissue swelling with questionable tiny focus of soft tissue air medially. No acute osseous findings appreciated. Assessment and Plan - Diagnosis (1) Cellulitis and abscess of right lower extremity Is this a current diagnosis for this admission?: Yes Plan: 05/14/2020-patient admitted with abscess of the right lower extremity status post incision and drainage done in the ER. Blood cultures wound cultures are pending presently on IV cefepime and vancomycin. X-ray is suggestive of soft tissue swelling with a questionable tiny focus of soft tissue air medially. As mentioned above incision and drainage was done in the ER. (2) Intermittent confusion Is this a current diagnosis for this admission?: Yes Plan: 05/14/2020-at the time of my examination patient alert and awake oriented communicating well. Not confused. (3) Tobacco use disorder, continuous Is this a current diagnosis for this admission?: Yes Plan: 05/14/2020-patient is a daily day smoker smoking counseling provided patient is with a nicotine patch at this time. - Plan Summary Summary: Patient will be admitted to the medical floor, where he will receive routine supportive and symptomatic cares. He will be treated with IV antibiotics utilizing vancomycin and cefepime pending blood and wound cultures. He will receive morphine sulfate 2 to 4 mg IV every 2 hours as needed for pain. He will receive Ativan 1 mg IV every 4 hours as needed for anxiety or restlessness. He will be placed on a regular diet. CBCs, metabolic profiles, magnesium levels and additional laboratory and/or radiographic evaluations will be obtained as appropriate. Smoking cessation is advised and counseled briefly at the bedside. A nicotine replacement patch is available for the patient's use, if desired.
[2020-05-14] MEDS: DOCUSATE SODIUM 100 MG CAPSULE PO SCH ×2 (11:01→17:12)
[2020-05-14] MEDS: FAMOTIDINE 20 MG TABLET PO SCH ×2 (11:01→22:04)
[2020-05-14] MEDS: VANCOMYCIN HCL 1,000 MG in DEXTROSE 5%-WATER 250 ML IV SCH ×2 (11:02→17:14)
[2020-05-14] MEDS: CEFEPIME HCL 2 GM in DEXTROSE 5%-WATER 50 ML IV SCH (19:18)
[2020-05-14 20:13] VITALS: BP 114/71
[2020-05-14] MEDS ORDERED: DIPHENHYDRAMINE HCL 50 MG/ML VIAL IV ONE (20:30)
[2020-05-14 21:24] LABS: URINE BARBITURATES SCREEN NEGATIVE; URINE BENZODIAZEPINES SCREEN NEGATIVE; URINE COCAINE SCREEN NEGATIVE; URINE MARIJUANA (THC) SCREEN NEGATIVE; URINE METHADONE SCREEN NEGATIVE; URINE PHENCYCLIDINE SCREEN NEGATIVE
[2020-05-15] MEDS: VANCOMYCIN HCL 1,000 MG in DEXTROSE 5%-WATER 250 ML IV SCH ×2 (02:42→09:23)
[2020-05-15 05:17] LABS: HEMATOCRIT 38.7 % (37.9-51.0); HEMOGLOBIN 13.6 g/dL (13.5-17.0); MEAN CORPUSCULAR HEMOGLOBIN 29.1 pg (27.0-33.4); MEAN CORPUSCULAR HGB CONC 35.2 g/dL (32.0-36.0); MEAN CORPUSCULAR VOLUME 83 fl (80-97); PLATELET COUNT 254 10^3/uL (150-450); RED BLOOD COUNT 4.68 10^6/uL (4.35-5.55); RED CELL DISTRIBUTION WIDTH 13.8 % (11.5-14.0); WHITE BLOOD COUNT 6.5 10^3/uL (4.0-10.5)
[2020-05-15 05:45] LABS: ANION GAP 5 (5-19); BLOOD UREA NITROGEN 9 mg/dL (7-20); CALCIUM 9.2 mg/dL (8.4-10.2); CARBON DIOXIDE 26 mmol/L (22-30); CHLORIDE 107 mmol/L (98-107); GLUCOSE 97 mg/dL (75-110); POTASSIUM 4.4 mmol/L (3.6-5.0)
[2020-05-15] MEDS: HEPARIN SOD (PORCINE) 5,000 UNIT/ML 1 ML VIAL SUBCUT SCH (05:45)
[2020-05-15] MEDS: CEFEPIME HCL 2 GM in DEXTROSE 5%-WATER 50 ML IV SCH (05:47)
[2020-05-15] MEDS: DOCUSATE SODIUM 100 MG CAPSULE PO SCH (09:08)
[2020-05-15] MEDS: FAMOTIDINE 20 MG TABLET PO SCH (09:08)
--- NOTE | 2020-05-15 10:28 | PDOC PROGRESS REPORT ---
Subjective Progress Note for:: 05/15/20 Subjective:: 29 year old male who represented to the emergency room with a 5-day history of right leg pain. He admits that he was seen in the emergency room on 05/10/2020, with a 2-day history of a painful red and swollen medial right lower leg, and was diagnosed with a abscess and cellulitis of his right lower extremity. He admits at that time the abscess was incised and drained and he was started on oral antibiotics utilizing Bactrim DS. He states he took his antibiotic therapy as directed, however his leg has been increasingly more painful and has become more swollen, red and warm to touch. He further admits accompanying body aches and associated intermittent confusion over the last 3 days. His leg pain is made significantly worse by weightbearing. He admits prior similar episodes. He denies identification of any additional aggravating or ameliorating factors for his right leg pain. In the emergency room he was noted to have a new small area of abscess involving the same area on the medial aspect of the right lower extremity which was incised and drained. Due to his lack of response to outpatient therapy he was subsequently admitted to the hospital for further evaluation and treatment. [id number]-old male admitted with right lower leg abscess incision and drainage was done in the emergency room. Patient was started on IV cefepime and vancomycin. Blood cultures or wound cultures are pending. Complaining of of stinging pain in the right lower extremity. [id number]-old male admitted with right lower leg extremity abscess stat us post incision and drainage was done. Surgical consult was requested for dressing recommendations. Patient is on vancomycin and Zosyn complaining of intense each with vancomycin. Plan is to discontinue vancomycin and to start him on IV clindamycin at this time. Reason For Visit: CELLULITIS WITH ABSCESS RIGHT LOWER LEG Physical Exam Vital Signs: Temp Pulse Resp BP Pulse Ox 97.7 F 79 15 114/71 94 05/14/20 19:32 05/15/20 10:07 05/15/20 10:07 05/14/20 19:32 05/15/20 10:07 Intake & Output 05/14/20 05/15/20 05/16/20 06:59 06:59 06:59 Intake Total 100 1989 50 Balance 100 1989 50 Weight 70.1 kg 70.3 kg General appearance: PRESENT: no acute distress, well-developed Head exam: PRESENT: atraumatic Eye exam: PRESENT: PERRLA Mouth exam: PRESENT: moist, tongue midline Teeth exam: PRESENT: poor dentation Neck exam: ABSENT: carotid bruit, JVD, lymphadenopathy, thyromegaly Respiratory exam: PRESENT: decreased breath sounds Cardiovascular exam: PRESENT: RRR. ABSENT: diastolic murmur, rubs, systolic murmur GI/Abdominal exam: PRESENT: normal bowel sounds, soft. ABSENT: distended, guarding, mass, organolmegaly, rebound, tenderness Rectal exam: PRESENT: deferred Extremities exam: PRESENT: full ROM. ABSENT: calf tenderness, clubbing, pedal edema Neurological exam: PRESENT: alert, awake, oriented to person, oriented to place, oriented to time, oriented to situation, CN II-XII grossly intact. ABSENT: motor sensory deficit Psychiatric exam: PRESENT: appropriate affect, normal mood. ABSENT: homicidal ideation, suicidal ideation Results Laboratory Results: 05/15/20 04:33 05/15/20 04:33 05/15/20 05/15/20 04:33 04:33 WBC 6.5 RBC 4.68 Hgb 13.6 Hct 38.7 MCV 83 MCH 29.1 MCHC 35.2 RDW 13.8 Plt Count 254 Sodium 137.9 Potassium 4.4 Chloride 107 Carbon Dioxide 26 Anion Gap 5 BUN 9 Creatinine 0.74 Est GFR ( Amer) > 60 Glucose 97 Calcium 9.2 Magnesium 2.1 Impressions: Tibia/Fibula X-Ray 05/13/20 23:34 IMPRESSION: Soft tissue swelling with questionable tiny focus of soft tissue air medially. No acute osseous findings appreciated. Assessment and Plan - Diagnosis (1) Cellulitis and abscess of right lower extremity Is this a current diagnosis for this admission?: Yes Plan: 05/14/2020-patient admitted with abscess of the right lower extremity status post incision and drainage done in the ER. Blood cultures wound cultures are pending presently on IV cefepime and vancomycin. X-ray is suggestive of soft tissue swelling with a questionable tiny focus of soft tissue air medially. As mentioned above incision and drainage was done in the ER. 05/15/2020-patient admitted with right lower leg abscess status post incision and drainage was done. Wound culture is positive for gram-positive cocci presently on IV Zosyn and vancomycin patient is complaining of intense itching with vancomycin. Plan is to discontinue IV vancomycin and to start him on IV clindamycin from today. Surgical consult was requested for wound dressing re commendations. (2) Intermittent confusion Is this a current diagnosis for this admission?: Yes Plan: 05/14/2020-at the time of my examination patient alert and awake oriented communicating well. Not confused. (3) Tobacco use disorder, continuous Is this a current diagnosis for this admission?: Yes Plan: 05/14/2020-patient is a daily day smoker smoking counseling provided patient is with a nicotine patch at this time. - Plan Summary Summary: Patient will be admitted to the medical floor, where he will receive routine supportive and symptomatic cares. He will be treated with IV antibiotics utilizing vancomycin and cefepime pending blood and wound cultures. He will receive morphine sulfate 2 to 4 mg IV every 2 hours as needed for pain. He will receive Ativan 1 mg IV every 4 hours as needed for anxiety or restlessness. He will be placed on a regular diet. CBCs, metabolic profiles, magnesium levels and additional laboratory and/or radiographic evaluations will be obtained as appropriate. Smoking cessation is advised and counseled briefly at the bedside. A nicotine replacement patch is available for the patient's use, if desired.
[2020-05-15 10:48] LABS: VANCOMYCIN,TROUGH < 5.0 ug/mL (5.0-20.0)
--- NOTE | 2020-05-15 12:01 | PDOC CONSULTATION ---
Consultation Consult Date: 05/15/20 Provider Consulted: CLAIRE ALFARO Consult reason:: Abscess right lower leg post IND History of Present Illness Admission Date/PCP: 05/14/20 04:37 History of Present Illness: JUAN MESA is a 29 year old male was noted to have an abscess of the right lower leg which was drained yesterday in the ED and drains were placed. The wound was checked at bedside and the packing were removed that were actually stuck to the 4 x 4 that came out when the dressing was removed. There is not any abscess cavity noted it still a little erythematous. No further drainage noted Past Medical History Cardiac Medical History: Denies: Coronary Artery Disease, DVT, Hypertension Pulmonary Medical History: Reports: Bronchitis, Pneumonia Denies: Asthma, Chronic Obstructive Pulmonary Disease (COPD) EENT Medical History: Denies: Cataracts, Ears - Hearing aids Neurological Medical History: Denies: Multiple Sclerosis, Seizures Endocrine Medical History: Denies: Diabetes Mellitus Type 1, Hyperthyroidism, Hypothyroidism, Obesity Renal/ Medical History: Denies: Chronic Kidney Disease, Nephrolithiasis Malignancy Medical History: Reports: None GI Medical History: Denies: Cirrhosis, Hepatitis, Peptic Ulcer Disease Musculoskeltal Medical History: Denies: Arthritis, Gout Skin Medical History: Denies: Eczema, Psoriasis Psychiatric Medical History: Reports: Attention Deficit Hyperactivity Disorder, Substance Abuse, Tobacco Dependency Denies: Alcohol Dependency, Depression Traumatic Medical History: Reports: None Hematology: Denies: Anemia, Bleeding Tendencies Infectious Medical History: Reports: None Past Surgical History Past Surgical History: Reports: None, Other - I&D abscess right lower leg done in the ED 05/14/2020 Social History Lives with: Parents Smoking Status: Current Every Day Smoker Cigarettes Packs Per Day: 1 Electronic Cigarette use?: No Number of Years Smokin Last Time Smoked: 05/13/20 Frequency of Alcohol Use: None Hx Recreational Drug Use: Yes - Denies current use: Quit after his twin brother of a heroin overdose. Drugs: Heroin Hx Prescription Drug Abuse: No - Advance Directive Resuscitation Status: Full Code Family History Family History: denies: CAD, DM, Hypertension, Malignancy Parental Family History Reviewed: Yes Children Family History Reviewed: No Sibling(s) Family History Reviewed.: No Medication/Allergy Home Medications: No Home Medications 05/14/20 Allergies/Adverse Reactions: prednisone Adverse Reaction (Verified 05/10/20 08:54) itching, rash to palms Review of Systems Constitutional: PRESENT: as per HPI Musculoskeletal: PRESENT: other - Some pains along the right lower leg I&D sites Physical Exam Vital Signs: Temp Pulse Resp BP Pulse Ox 97.7 F 79 15 114/71 94 05/14/20 19:32 05/15/20 10:07 05/15/20 10:07 05/14/20 19:32 05/15/20 10:07 Intake & Output 05/14/20 05/15/20 05/16/20 06:59 06:59 06:59 Intake Total 100 1989 50 Balance 100 1989 50 Weight 70.1 kg 70.3 kg Extremities exam: PRESENT: other - 2 I&D sites noted in the right lower leg. The iodoform gauze drains were stuck to the 4 x 4 and came out in the 4 x 4 was lifted up. There is still some cellulitis around the lower wound but no drainage noted when he squeezed. Results Laboratory Results: 05/15/20 04:33 05/15/20 04:33 05/15/20 05/15/20 04:33 04:33 WBC 6.5 RBC 4.68 Hgb 13.6 Hct 38.7 MCV 83 MCH 29.1 MCHC 35.2 RDW 13.8 Plt Count 254 Sodium 137.9 Potassium 4.4 Chloride 107 Carbon Dioxide 26 Anion Gap 5 BUN 9 Creatinine 0.74 Est GFR ( Amer) > 60 Glucose 97 Calcium 9.2 Magnesium 2.1 05/14/20 03:23 Leg - Right Cellulitis Gram Stain - Final Impressions: Tibia/Fibula X-Ray 05/13/20 23:34 IMPRESSION: Soft tissue swelling with questionable tiny focus of soft tissue air medially. No acute osseous findings appreciated. Assessment & Plan - Diagnosis (2) Cellulitis and abscess of right lower extremity Is this a current diagnosis for this admission?: Yes - Time Time Spent: 30 to 50 Minutes - Inpatient Certification Medical Necessity: Need for IV Antibiotics - Plan Summary Plan Summary: 29-year-old male post I&D of 2 abscesses along the right lower leg 05/14/2020 in the ED department. Today iodoform gauze drains were pulled out that were actually stopped with a 4 x 4. They came out on the 4 x 4 were remove. There is still cellulitis along the right lower leg distal I&D site but no other drainage noted. Impression abscess of the right lower leg x2 with cellulitis. No need to place another drain on the right lower leg wound. Patient advised to clean the wounds with soap and water when he showers on a daily basis and just put a dry dressing over it afterwards. Continue with p.o. antibiotics and Margarita's specific culture studies came come back and then patient can be discharged on appropriate antibiotics. Surgery will sign off and call for other questions.
[2020-05-15] MEDS ORDERED: CLINDAMYCIN 600 MG/D5W RTU 600 MG/50 ML RTUPB IV SCH (14:00)
--- NOTE | 2020-05-16 06:59 | Left Against Medical Advice ---
Against Medical Advice Admission Date/Time: 05/14/20 04:37 Primary Care Provider: Date of Patient Emigration: 05/15/20 - Diagnosis: (1) Cellulitis and abscess of right lower extremity Is this a current diagnosis for this admission?: Yes (2) Intermittent confusion Is this a current diagnosis for this admission?: Yes (3) Tobacco use disorder, continuous Is this a current diagnosis for this admission?: Yes - Summary: Summary: Please see Admission and Progress Notes as well. JUAN MESA is a 29 M, who LEFT AGAINST MEDICAL ADVICE. The Patient was admitted on 05/14/20 04:37. 29-year-old male admitted with complaints of right lower leg pain status post incision and drainage was done in the emergency room. This is the second bed to the ER. He was admitted to the [facility] started giving IV antibiotic therapy cefepime and vancomycin. Patient complaining of itching with vancomycin antibiotics is changed to clindamycin. Surgical consult was requested for a dressing changes recommendations. Patient eloped yesterday around 4:30 PM. Security personnel unable to find him in the hospital. [place] [employer] is notified because he left with IV access. (1) Cellulitis and abscess of right lower extremity Is this a current diagnosis for this admission?: Yes Plan: 05/14/2020-patient admitted with abscess of the right lower extremity status post incision and drainage done in the ER. Blood cultures wound cultures are pending presently on IV cefepime and vancomycin. X-ray is suggestive of soft tissue swelling with a questionable tiny focus of soft tissue air medially. As mentioned above incision and drainage was done in the ER. 05/15/2020-patient admitted with right lower leg abscess status post incision and drainage was done. Wound culture is positive for gram-positive cocci presently on IV Zosyn and vancomycin patient is complaining of intense itching with vancomycin. Plan is to discontinue IV vancomycin and to start him on IV clindamycin from today. Surgical consult was requested for wound dressing recommendations. 05/16/2020-patient left hospital without notifying anybody. (2) Intermittent confusion Is this a current diagnosis for this admission?: Yes Plan: 05/14/2020-at the time of my examination patient alert and awake oriented communicating well. Not confused. (3) Tobacco use disorder, continuous Is this a current diagnosis for this admission?: Yes Plan: 05/14/2020-patient is a daily day smoker smoking counseling provided patient is with a nicotine patch at this time. - Plan Summary Summary: Patient will be admitted to the medical floor, where he will receive routine supportive and symptomatic cares. He will be treated with IV antibiotics utilizing vancomycin and cefepime pending blood and wound cultures. He will receive morphine sulfate 2 to 4 mg IV every 2 hours as needed for pain. He will receive Ativan 1 mg IV every 4 hours as needed for anxiety or restlessness. He will be placed on a regular diet. CBCs, metabolic profiles, magnesium levels and additional laboratory and/or radiographic evaluations will be obtained as appropriate. Smoking cessation is advised and counseled briefly at the bedside. A nicotine replacement patch is available for the patient's use, if desired.
== END 2020-05-15 13:00 | disposition left against medical advice (07) | DRG 603 ==
LOC: ER 21:41 → EH 05-14 04:37 → 3W 05-14 06:28
PROVIDERS: ADMIT Emergency Medicine; ATTEND Internal Medicine
DX: L03.115 Cellulitis of right lower limb (principal); L02.415 Cutaneous abscess of right lower limb; R41.0 Disorientation, unspecified; F17.210 Nicotine dependence, cigarettes, uncomplicated; F90.9 Attention-deficit hyperactivity disorder, unspecified type; Z88.8 Allergy status to other drugs, medicaments and biological substances; Z79.899 Other long term (current) drug therapy
CPT/HCPCS: 36415; 80048; 80053; 80202; 80307; 83605; 83735; 85025; 85027; 85652; 86140; 87040; 87070; 87077; 87186; 87205; 96365; 99284; J0692; J1200; J1644; J2270; J3370; J3490; J7060

== ENCOUNTER 2020-08-04 20:24 | Emergency (ER) | payer SELFPAY ==
--- NOTE | 2020-08-04 20:30 | ER Document Report ---
ED Medical Screen (RME) - General Mode of Arrival: Wheelchair Information source: Patient TRAVEL OUTSIDE OF THE [place] IN LAST 30 DAYS: No - General Chief Complaint: Laceration Stated Complaint: ARM LACERATION Time Seen by Provider: 08/04/20 20:28 Notes: HPI; was called to the lobby to evaluate a 29-year-old male presents emergency room with laceration to his right forearm. Patient states he cut it on a piece of glass table. Persistent bleeding. PE: Alert and oriented x3. Moderate distress noted. Large laceration noted to the right forearm. Bleeding is persistent. Gauze and Coban was applied. Charge nurse was notified. Patient was taken directly to room. I have greeted and performed a rapid initial assessment of this patient. A comprehensive ED assessment and evaluation of the patient, analysis of test results and completion of the medical decision making process will be conducted by additional ED providers. I have specifically instructed the patient or family members with the patient to immediately return to any nursing staff should anything change in the patient's condition or with their chief complaint. (TAYLOR MARIEE) - Related Data Allergies/Adverse Reactions: prednisone Adverse Reaction (Verified 05/10/20 08:54) itching, rash to palms Past Medical History - Past Medical History Cardiac Medical History: Denies: Hx Coronary Artery Disease, Hx DVT, Hx Hypertension Pulmonary Medical History: Reports: Hx Bronchitis, Hx Pneumonia Denies: Hx Asthma, Hx COPD Neurological Medical History: Denies: Hx Seizures Endocrine Medical History: Denies: Hx Diabetes Mellitus Type 1, Hx Hyperthyroidism, Hx Hypothyroidism Renal/ Medical History: Denies: Hx Peritoneal Dialysis GI Medical History: Denies: Hx Cirrhosis, Hx Hepatitis Musculoskeltal Medical History: Denies Hx Arthritis, Denies Hx Gout Skin Medical History: Denies Hx Eczema, Denies Hx Psoriasis Psychiatric Medical History: Reports: Hx Attention Deficit Hyperactivity Disorder Denies: Hx Depression Infectious Medical History: Denies: Hx Hepatitis Past Surgical History: Reports: Other - I&D abscess right lower leg done in the ED 05/14/2020 - Immunizations Hx Diphtheria, Pertussis, Tetanus Vaccination: Yes Physical Exam - Vital signs Vitals: Temp Resp Pulse Ox 99.0 F 13 100 08/04/20 20:35 08/04/20 20:35 08/04/20 20:35 Course - Vital Signs Vital signs: Temp Pulse Resp BP Pulse Ox 99.0 F 20 149/80 H 99 08/04/20 20:35 08/04/20 21:01 08/04/20 21:00 08/04/20 21:01 Doctor's Discharge - Discharge Clinical Impression: Laceration of right forearm with complication Qualifiers: Encounter type: initial encounter Qualified Code(s): S51.811A - Laceration without foreign body of right forearm, initial encounter Condition: Stable Disposition: [facility] Instructions: Tetanus Immunization Given ([facility])
[2020-08-04] MEDS ORDERED: LORAZEPAM INJ 2 MG/1 ML VIAL IV ONE ×2 (20:34→21:47)
[2020-08-04] MEDS ORDERED: ONDANSETRON HCL INJ/PF 4 MG/2 ML SDV IV ONE (20:34)
[2020-08-04] MEDS ORDERED: HYDROMORPHONE HCL INJ/PF 2 MG/ML AMPULE IV ONE ×2 (20:34→21:47)
[2020-08-04] MEDS ORDERED: CEFAZOLIN 2 GM/D5W RTU 2 GM/50 ML RTUPB IV ONE (20:43)
[2020-08-04] MEDS ORDERED: DIPH/PERTUSS(ACELL)/TETANUS VAC/PF 0.5 ML SYR (>=10YO) IM ONE (20:43)
[2020-08-04] MEDS ORDERED: NORMAL SALINE 1000 ML 1,000 ML IV ONE (20:49)
--- NOTE | 2020-08-04 21:09 | ER Document Report ---
ED General - General Chief Complaint: Laceration Stated Complaint: ARM LACERATION Time Seen by Provider: 08/04/20 20:28 Mode of Arrival: Wheelchair TRAVEL OUTSIDE OF THE [place] IN LAST 30 DAYS: No - HPI Context: Patient is a 29-year-old male who presents via POV with a large laceration to his right forearm that occurred at approximately 1930 hrs. Patient states he was at home and accidentally tripped and fell onto a plate glass table, sustaining a laceration to the dorsal surface of his right forearm. Patient is right-hand dominant. Patient rates the pain as a 5 out of 5. Patient states that movement and touching the area exacerbates the pain and nothing alleviates the pain. Patient does not recall when his last tetanus booster was. Patient denies any allergies to any medications. Patient denies recent fever, chills, cough, shortness of breath, chest pain, rash, history of COVID infection, known exposure to COVID positive persons or known exposure to persons under investigation for COVID-19. Patient complains that he is unable to move his fingers. Patient states he is able to feel pain in his forearm. Associated symptoms: Other - See HPI Exacerbated by: Other - See HPI Relieved by: Other - See HPI - Related Data Allergies/Adverse Reactions: prednisone Adverse Reaction (Verified 05/10/20 08:54) itching, rash to palms Past Medical History - General Information source: Patient - Social History Smoking Status: Current Every Day Smoker Frequency of alcohol use: None Drug Abuse: Other - Patient states he used to use heroin but no longer does Lives with: Family Family History: denies: CAD, DM, Hypertension, Malignancy - Past Medical History Cardiac Medical History: Denies: Hx Coronary Artery Disease, Hx DVT, Hx Hypertension Pulmonary Medical History: Reports: Hx Bronchitis, Hx Pneumonia Denies: Hx Asthma, Hx COPD Neurological Medical History: Denies: Hx Seizures Endocrine Medical History: Denies: Hx Diabetes Mellitus Type 1, Hx Hyperthyroidism, Hx Hypothyroidism Renal/ Medical History: Denies: Hx Peritoneal Dialysis GI Medical History: Denies: Hx Cirrhosis, Hx Hepatitis Musculoskeletal Medical History: Denies Hx Arthritis, Denies Hx Gout Skin Medical History: Denies Hx Eczema, Denies Hx Psoriasis Psychiatric Medical History: Reports: Hx Attention Deficit Hyperactivity Disorder Denies: Hx Depression Infectious Medical History: Denies: Hx Hepatitis Past Surgical History: Reports: Other - I&D abscess right lower leg done in the ED 05/14/2020 - Immunizations Hx Diphtheria, Pertussis, Tetanus Vaccination: Yes Review of Systems - Review of Systems Constitutional: No symptoms reported EENT: No symptoms reported Cardiovascular: No symptoms reported Respiratory: No symptoms reported Gastrointestinal: No symptoms reported Genitourinary: No symptoms reported Male Genitourinary: No symptoms reported Musculoskeletal: See HPI Skin: See HPI Hematologic/Lymphatic: No symptoms reported Neurological/Psychological: See HPI Physical Exam - Vital signs Vitals: Temp Resp Pulse Ox 99.0 F 13 100 08/04/20 20:35 08/04/20 20:35 08/04/20 20:35 - Notes Notes: CONSTITUTIONAL [Vital signs reviewed, Patient appears comfortable, Alert and oriented X 3, Normal stature.] HEAD [Atraumatic, Normocephalic.] EYES [Eyes are normal to inspection, No discharge from eyes, Extraocular muscles intact, Sclera are normal, Conjunctiva are normal.] NECK [Normal ROM, No jugular venous distention, No meningeal signs] RESPIRATORY CHEST [Chest is nontender, Breath sounds normal, No respiratory distress.] CARDIOVASCULAR [Tachycardia, No murmurs, Normal S1 S2, No rub, No gallop.] ABDOMEN [Abdomen is nontender, No pulsatile masses, No other masses, Bowel sounds quiet, No distension, No peritoneal signs] UPPER EXTREMITY No obvious traumatic injury noted to left upper extremity. Right upper extremity exam: Patient has a 10 cm long linear laceration on the dorsal aspect of his right forearm proximal to the elbow. The laceration gapes open to a maximum of 2 cm at its widest point and severed tendons and muscle fascia are visualized. Bleeding has been controlled with direct pressure. No tourniquet was used. Patient has no apparent foreign bodies present in the wound. Patient has approximately 10 to 15 degrees of extension at the wrist. Patient is unable to extend any of his digits on his right hand. Patient's two-point discrimination seems grossly intact when tested with a paperclip. Cap refill is less than 2 seconds in all digits. Radial pulse is 2+. Wet-to-dry dressing was ordered for the wound along with a light pressure dressing. LOWER EXTREMITY [Inspection negative for deformities, obvious lacerations, foreshortening of either extremity.] NEURO Deficits in extensor function of right wrist and digits as noted above, No focal sensory deficits, Speech normal.] SKIN [Skin is significant for a 10 cm long by 2 cm wide laceration on the right forearm on its dorsal surface that appears to extend down into the muscle fascia. PSYCHIATRIC [Normal affect. ] Course - Re-evaluation Re-evalutation: 08/04/20 22:50 Patient's injury is complex and extensive. This MD feels its not amenable to washout and closure in a ER setting. This MD has concerns about the amount of local anesthesia it would take to completely anesthetize the wound, the ability of the patient to tolerate anesthetizing the wound, the amount of time and volume of fluid it would take to adequately washout the wound and the time and complexly that even the most basic closure would involve. I am not comfortable with the plan of care suggesting "just wash it out and close it." - Vital Signs Vital signs: Temp Pulse Resp BP Pulse Ox 98.5 F 14 126/80 H 100 08/04/20 22:12 08/04/20 22:12 08/04/20 22:12 08/04/20 22:12 - Consults DR. TRE EARL FOR [facility] Time consulted: 22:11 - DR. EARL ACCEPTED PT ON BEHALF OF [facility] Reason for consultation: 08/04/20 22:11 RIGHT FOREARM LACERATION WITH COMPLICATION Discharge - Discharge Clinical Impression: Laceration of right forearm with complication Qualifiers: Encounter type: initial encounter Qualified Code(s): S51.811A - Laceration without foreign body of right forearm, initial encounter Condition: Stable Disposition: [facility] Instructions: Tetanus Immunization Given ([facility])
[2020-08-04 22:27] VITALS: BP 126/80
== END 2020-08-04 23:36 | disposition short-term general hospital (02) ==
LOC: ER 20:24
DX: S41.111A Laceration without foreign body of right upper arm, initial encounter (principal); W01.110A Fall on same level from slipping, tripping and stumbling with subsequent striking against sharp glass, initial encounter; Y92.009 Unspecified place in unspecified non-institutional (private) residence as the place of occurrence of the external cause; F17.200 Nicotine dependence, unspecified, uncomplicated; Z23 Encounter for immunization
CPT/HCPCS: 96376; 99285; 90471; 96375; 96365; 90715; J1170; J2060; J2405; J7030; J0690